=== PATIENT | male | born 1985 | race Caucasian/White ===

== ENCOUNTER → 2022-10-07 08:32 | Outpatient (BNVA) | payer OTHER, SELFPAY | PROVIDERS: Visit Provider Nurse Practitioner Family | DX: Z13.89 Encounter for screening for other disorder (principal) ==

== ENCOUNTER → 2022-10-31 13:55 | Outpatient (BNVA) | payer OTHER, SELFPAY | PROVIDERS: Visit Provider Urology | DX: Z30.2 Encounter for sterilization (principal); F41.9 Anxiety disorder, unspecified | CPT/HCPCS: 55250 ==

== ENCOUNTER 2023-01-31 10:02 | Outpatient (AMB) | payer OTHER, SELFPAY ==
--- NOTE | 2023-01-31 10:32 | MHC.OFFVIS ---
Intake Intake Visit Reasons: 3m/semen analysis Intake Note: Patient is present for Follow Up Semen Analysis Urology Med: None Antibiotic Allergy: None Blood Thinner: None Allergies iodine Adverse Reaction (Verified 01/31/23 10:34) Rash PFSH Surgical History History of hernia repair Coding Diagnoses
--- NOTE | 2023-01-31 10:37 | A.OFFVIS_ITS ---
Intake Intake Visit Reasons: 3m/semen analysis Allergies iodine Adverse Reaction (Verified 01/31/23 10:34) Rash HPI HPI Comments History of Present Illness Details is a pleasant 37 year old male patient. He presents to the office today for - vasectomy evaluation No sperm seen on HPF evaluation Minimal pain Partner may transition off control Vasectomy follow-up The patient presents for vasectomy follow-up.? He is currently He has fathered -?3 child, with a single partner The youngest child is - 3 years old and his oldest is 7 years old. His partner is aware and permissive for a vasectomy [facility] Surgical History History of hernia repair Review of Systems Const Denies chills and Denies fever(s) Card Reports no additional complaints and Denies syncope Resp Denies cough GI Denies abdominal pain and Denies heartburn Reports as per HPI and Denies change in libido Neuro Denies syncope Psych Denies change in libido Endo Denies change in libido Physical Exam Const General: cooperative, healthy appearing, comfortable and no acute distress Orientation/consciousness: patient oriented x3 HEENT Face and sinus: Yes normal facial exam Mouth: moist mucous membranes Neck Neck: Yes normal visual inspection, Yes full ROM and Yes trachea midline Chest Chest palpation & inspection: normal inspection of the chest Resp Effort & Inspection: normal respiratory effort, able to speak in complete sentences and no respiratory distress GI Inspection: Yes normal to inspection Back/Spine/Pelvis Cervical Spine: normal cervical lordosis Thoracic/Lumbar Spine: thoracic and lumbar spine normal to inspection Skin General skin exam: no rashes or lesions noted Neuro General: patient oriented x3, gait normal, tone normal and moves all extremities Extrem General: Yes normal to inspection and Yes capillary refill normal Assessment & Plan Assessment & Plan (1) Pain: Code(s): R52 - Pain, unspecified Plan P.r.n. follow-up Medications: Discontinued diazepam (Valium) take one tab when arrive for procedure Discontinued Reason: Patient Completed Course 2 mg PO DAILY 2 tabs 0RF anxiety F41.8 - Other specified anxiety disorders acetaminophen-codeine 300-30 mg Discontinued Reason: Patient Completed Course 1 tab PO Q8H 3 days 9 tabs 0RF F41.8 - Other specified anxiety disorders Patient Instructions: Imaging studies, laboratory and physical exam results were discussed and reviewed in detail. No major barriers to patient understanding were identified. An opportunity to ask questions regarding the treatment plan was provided. All questions were answered. The patient expressed understanding and agreement with the above treatment plan. The patient is aware they should contact our office by phone for worsening of their current condition or the appearance of new urologic symptoms. Compliance is encouraged with any medications and followup testing that is ordered. It is a privilege to participate in the urologic care of your patient. If you have any questions or concerns regarding treatment for the above conditions, or other urologic issues, please do not hesitate to contact me. The office telephone contact is [phone]. This note is constructed using voice recognition software. While every effort has been made to ensure accuracy front desk auxiliary errors may have been included. Yours sincerely, Dr Dakota Ornelas MD, [facility] - Urology Providers of Expert, Compassionate Care for the Genitourinary System Coding Level of Care Code Est Pt Level 3 (23762) Diagnoses Pain R52
== END 2023-01-31 10:38 | disposition home or self-care (01) ==
PROVIDERS: Visit Provider Urology
DX: R52 Pain, unspecified (principal)
CPT/HCPCS: 99213

== ENCOUNTER → 2023-01-31 10:02 | Outpatient (BNVA) | payer OTHER, SELFPAY | PROVIDERS: Visit Provider Urology ==